=== PATIENT | female | born 1960 | race Caucasian/White ===

== ENCOUNTER 2023-12-16 20:03 | Emergency (ER) | payer SELFPAY ==
[2023-12-16 22:13] LABS: APPEARANCE,URINE CLEAR (CLEAR); BILIRUBIN,URINE NEGATIVE (NEGATIVE); COLOR,URINE YELLOW (YELLOW); GLUCOSE,URINE NEGATIVE (NEGATIVE); KETONES,URINE 15 (NEGATIVE); LEUKOCYTE ESTERASE,URINE NEGATIVE (NEGATIVE); NITRITE,URINE NEGATIVE (NEGATIVE); OCCULT BLOOD,URINE NEGATIVE (NEGATIVE); PH,URINE 5.5 (5.0-9.0); PROTEIN,URINE NEGATIVE (NEGATIVE); UROBILINOGEN,URINE 0.2 mg/dL (0.2-1.0)
[2023-12-16 22:35] LABS: BASOPHILS PERCENT AUTO 0.3 % (0.0-1.0); EOSINOPHILS PERCENT AUTO 0.1 % (1.0-3.0); HEMATOCRIT 41.5 % (37.0-47.0); HEMOGLOBIN 13.3 g/dL (12.0-16.0); LYMPHOCYTES PERCENT AUTO 19.2 % (20.5-50.1); MEAN CORPUSCULAR HEMOGLOBIN 27.8 pg (27.0-34.0); MEAN CORPUSCULAR VOLUME 86.8 fL (80-100); MONOCYTES PERCENT AUTO 7.4 % (2-8); PLATELET COUNT,PLT 308 10^3/uL (150-450); RED BLOOD CELL COUNT 4.78 10^6/uL (4.2-5.4); WHITE BLOOD CELL COUNT,WBC 10.4 10^3/uL (5.0-10.0)
[2023-12-16 22:43] LABS: CORONAVIRUS COVID-19 NAA NEGATIVE (NEGATIVE); INFLUENZA A NAA NEGATIVE (NEGATIVE); INFLUENZA B NAA NEGATIVE (NEGATIVE); RESPIRATORY SYNCYTIAL VIR NAA NEGATIVE (NEGATIVE)
[2023-12-16 23:02] LABS: ALBUMIN 4.4 g/dL (3.4-5.0); ANION GAP 19.9 mEq/L (7-13); BILIRUBIN TOTAL 0.4 mg/dL (0.2-1.0); BUN/CREATININE RATIO 14.1 (No establ ref range); CALCIUM 9.6 mg/dL (8.5-10.1); CREATININE 0.78 mg/dL (0.55-1.02); EST CRCL DRUG DOSING (CG) 65.4 mL/min; MAGNESIUM 2.2 mg/dL (1.8-2.4); POTASSIUM,K 3.9 mmol/L (3.5-5.1); PROTEIN TOTAL,TP 8.6 g/dL (6.4-8.2); TSH ULTRASENSITIVE 2.75 uIU/mL (0.36-3.74)
[2023-12-16 23:51] LABS: HEMOGLOBIN A1C 5.9 % (<5.7)
[2023-12-16] MEDS: Acetaminophen 500 MG Tab PO ONE (23:59)
== END 2023-12-17 01:11 | disposition home or self-care (01) ==
LOC: DL.ED 20:03
DX: G47.00 Insomnia, unspecified (principal); R73.03 Prediabetes; I10 Essential (primary) hypertension; Z90.710 Acquired absence of both cervix and uterus; Z79.899 Other long term (current) drug therapy
CPT/HCPCS: 0241U; 36415; 80053; 81003; 83036; 83690; 83735; 84443; 85025; 93005; 93010; 99284; 99285; A9270